=== PATIENT | female | born 1970 | race Hispanic/Latino ===

== ENCOUNTER 2017-11-07 12:57 | Emergency (ER) | payer BC ==
[~2017-11-07 12:57] MED LIST: AMOX-427 PO; DULO30CA51 PO; LEVO1CAP3 PO; LORA1TAB3 PO; OXYC30TA89 PO; TRAZ150T79 PO; hydromorphone
[2017-11-07] MEDS ORDERED: ONDANSETRON HCL 4 MG/2 ML VIAL ONE (13:25)
[2017-11-07 14:05] LABS: HEMATOCRIT 42.5 % (36-48); LYMPHOCYTES % (AUTO) 6.9 % (21.0-51.0); MEAN CORPUSCULAR HEMOGLOBIN 28.5 pg (27.0-33.0); MEAN CORPUSCULAR HGB CONC 33.4 g/dL (32.0-36.0); MEAN CORPUSCULAR VOLUME 85.3 fL (79-99); MONOCYTES % (AUTO) 6.5 % (3.0-13.0); NEUTROPHILS % (AUTO) 86.6 % (40.0-77.0); PLATELET COUNT (AUTO) 219 K/uL (130-400); RED BLOOD CELL COUNT(AUTO) 4.98 MIL/uL (4.00-5.50); RED CELL DISTRIBUTION WIDTH 16.1 % (11.0-15.5); WHITE BLOOD COUNT (AUTO) 7.6 K/uL (4.8-10.8)
[2017-11-07 14:16] LABS: CREATININE 0.7 mg/dL (0.5-1.5); POTASSIUM 3.9 mmol/L (3.5-5.1)
[2017-11-07] MEDS ORDERED: HYDROMORPHONE 1 MG/1 ML AMP ONE (14:21)
[2017-11-07 14:22] LABS: ALBUMIN 3.6 g/dL (3.5-5.0); BILIRUBIN,TOTAL 0.5 mg/dL (0.2-1.0); TOTAL PROTEIN, SERUM 6.9 g/dL (6.0-8.3)
== END 2017-11-07 15:50 | disposition home or self-care (01) ==
LOC: EDH 12:57
DX: R11.2 Nausea with vomiting, unspecified (principal); R10.13 Epigastric pain; Z88.6 Allergy status to analgesic agent; Z85.038 Personal history of other malignant neoplasm of large intestine; Z85.820 Personal history of malignant melanoma of skin; Z85.43 Personal history of malignant neoplasm of ovary; Z90.710 Acquired absence of both cervix and uterus
CPT/HCPCS: 36415; 80053; 83690; 85025; 96374; 96375; 99284; J1170; J2405

== ENCOUNTER 2018-01-29 22:34 | Emergency (ER) | payer BC, MEDICARE ==
[2018-01-29 23:24] LABS: BASOPHILS % (AUTO) 0.4 % (0.0-5.0); EOSINOPHILS % (AUTO) 0.1 % (0.0-8.0); LYMPHOCYTES % (AUTO) 20.9 % (21.0-51.0); MEAN CORPUSCULAR HEMOGLOBIN 29.2 pg (27.0-33.0); MEAN CORPUSCULAR HGB CONC 34.2 g/dL (32.0-36.0); MEAN CORPUSCULAR VOLUME 85.4 fL (79-99); MONOCYTES % (AUTO) 0.8 % (3.0-13.0); NEUTROPHILS % (AUTO) 77.8 % (40.0-77.0); NUCLEATED RED BLOOD CELLS 0.1 % (0.0-0.19); PLATELET COUNT (AUTO) 258 K/uL (130-400); RED BLOOD CELL COUNT(AUTO) 4.57 MIL/uL (4.00-5.50); RED CELL DISTRIBUTION WIDTH 15.5 % (11.0-15.5)
[2018-01-29 23:38] LABS: CARBON DIOXIDE 29 mmol/L (21-32); CHLORIDE 105 mmol/L (101-111); GLOMERULAR FILTR. RATE CALC 63 mL/min (>60); GLUCOSE,RANDOM 181 mg/dL (70-105); POTASSIUM 4.6 mmol/L (3.5-5.1); SODIUM SERUM 140 mmol/L (136-145); UREA NITROGEN, BLOOD 14 mg/dL (7-18)
[2018-01-29 23:39] LABS: INR 0.91 (0.85-1.15); PARTIAL THROMBOPLASTIN TIME 23.3 SEC (26.3-35.5); PROTHROMBIN TIME 9.6 SEC (9.6-11.6)
[2018-01-29 23:52] LABS: ALANINE AMINOTRANSFERASE 20 U/L (12-78); ALBUMIN 3.5 g/dL (3.5-5.0); ASPARTATE AMINOTRANSFERASE 19 U/L (10-37); BILIRUBIN,TOTAL 0.5 mg/dL (0.2-1.0); CREATINE KINASE MB 0.9 ng/mL (0.5-3.6); CREATINE KINASE, TOTAL 61 U/L (21-232); MYOGLOBIN 15 ng/mL (10-92); TOTAL PROTEIN, SERUM 7.2 g/dL (6.0-8.3); TROPONIN I < 0.04 ng/mL (0.00-0.06)
[2018-01-30 00:12] LABS: BAND NEUTROPHILS % (MANUAL) 11 % (0-2); LYMPHOCYTES % (MANUAL) 23 % (22-44); MAN.DIFF COMMENT-IMPRESSION MANUAL DIFFERENTIAL; REACTIVE LYMPHOCYTES 4 % (0-0); SEGMENTED NEUTROPHILS % 62 % (40-70)
[2018-01-30] MEDS ORDERED: HYDROMORPHONE 1 MG/1 ML AMP ONE ×2 (00:20→02:27)
[2018-01-30] MEDS ORDERED: ONDANSETRON HCL MDV 20ML 2 MG/ML VIAL ONE (00:27)
[2018-01-30] MEDS ORDERED: SODIUM CHLORIDE 0.9% 1000ML 1,000 ML IV ONE (01:06)
[2018-01-30 02:13] LABS: APPEARANCE,URINE Clear (CLEAR); BILIRUBIN,URINE Negative (NEGATIVE); COLOR,URINE Yellow (YELLOW); GLUCOSE, URINE (UA) 250 mg/dL (NEGATIVE); KETONES,URINE Negative (NEGATIVE); LEUKOCYTE ESTERASE ,URINE Negative (NEGATIVE); NITRATE,URINE Negative (NEGATIVE); OCCULT BLOOD,URINE Negative (NEGATIVE); PROTEIN,URINE Negative (NEGATIVE); UROBILINOGEN,URINE 0.2 mg/dL (0.2-1.0)
[2018-01-30 02:31] LABS: BACTERIA,URINE None Seen /HPF (None Seen); RBC,URINE 0-1 /HPF (0-1); WBC,URINE 0-1 /HPF (0-1); YEAST,URINE BUDDING None Seen /HPF (None Seen)
[2018-01-30 02:32] LABS: SQUAMOUS EPITHELIAL CELL,UR Rare /HPF (0-2)
== END 2018-01-30 03:06 | disposition home or self-care (01) ==
LOC: EDH 22:34
DX: D01.0 Carcinoma in situ of colon (principal); G89.3 Neoplasm related pain (acute) (chronic); R53.1 Weakness; R11.0 Nausea; R79.1 Abnormal coagulation profile; Z88.6 Allergy status to analgesic agent; Z90.710 Acquired absence of both cervix and uterus; Z85.048 Personal history of other malignant neoplasm of rectum, rectosigmoid junction, and anus; Z85.43 Personal history of malignant neoplasm of ovary
CPT/HCPCS: 36415 ×2; 71045; 80053; 81001; 82550; 82553; 83605 ×2; 83874; 84484; 85007; 85025; 85610; 85730; 87040 ×2; 87088; 93005; 96361; 96374; 96375; 96376; 99285; J1170 ×2; J7030

== ENCOUNTER 2018-02-16 05:38 | Emergency (ER) | payer BC, MEDICARE ==
[2018-02-16] MEDS ORDERED: HYDROMORPHONE 1 MG/1 ML AMP ONE (05:55)
[2018-02-16 06:32] LABS: APPEARANCE,URINE CLEAR (CLEAR); BILIRUBIN,URINE NEGATIVE (NEGATIVE); COLOR,URINE YELLOW (YELLOW); GLUCOSE, URINE (UA) NEGATIVE (NEGATIVE); KETONES,URINE NEGATIVE (NEGATIVE); LEUKOCYTE ESTERASE ,URINE TRACE (NEGATIVE); NITRATE,URINE NEGATIVE (NEGATIVE); OCCULT BLOOD,URINE NEGATIVE (NEGATIVE); PROTEIN,URINE NEGATIVE (NEGATIVE); UROBILINOGEN,URINE 0.2 mg/dL (0.2-1.0)
[2018-02-16 06:33] LABS: BASOPHILS % (AUTO) 0.7 % (0.0-5.0); EOSINOPHILS % (AUTO) 4.9 % (0.0-8.0); HEMATOCRIT 41.5 % (36-48); MEAN CORPUSCULAR HEMOGLOBIN 29.3 pg (27.0-33.0); MEAN CORPUSCULAR HGB CONC 34.4 g/dL (32.0-36.0); MEAN CORPUSCULAR VOLUME 85.1 fL (79-99); MONOCYTES % (AUTO) 19.1 % (3.0-13.0); NEUTROPHILS % (AUTO) 28.3 % (40.0-77.0); PLATELET COUNT (AUTO) 252 K/uL (130-400); RED BLOOD CELL COUNT(AUTO) 4.88 MIL/uL (4.00-5.50); RED CELL DISTRIBUTION WIDTH 15.8 % (11.0-15.5); WHITE BLOOD COUNT (AUTO) 2.2 K/uL (4.8-10.8)
[2018-02-16 06:41] LABS: CREATININE 0.8 mg/dL (0.5-1.5); POTASSIUM 3.6 mmol/L (3.5-5.1)
[2018-02-16 06:47] LABS: ALBUMIN 3.7 g/dL (3.5-5.0); BILIRUBIN,TOTAL 0.3 mg/dL (0.2-1.0); TOTAL PROTEIN, SERUM 7.1 g/dL (6.0-8.3)
[2018-02-16 07:20] LABS: BACTERIA,URINE Rare /HPF (None Seen); RBC,URINE None Seen /HPF (0-1); SQUAMOUS EPITHELIAL CELL,UR Rare /HPF (0-2); WBC,URINE 0-1 /HPF (0-1)
[2018-02-16 07:30] LABS: BAND NEUTROPHILS % (MANUAL) 2 % (0-2); EOSINOPHILS % (MANUAL) 5 % (1-6); LYMPHOCYTES % (MANUAL) 45 % (22-44); MAN.DIFF COMMENT-IMPRESSION MANUAL DIFFERENTIAL; METAMYELOCYTES % 1 % (0-0); MONOCYTES % (MANUAL) 10 % (2-9); MYELOCYTES % 1 % (0-0); PLATELET MORPHOLOGY COMMENT ADEQUATE; PROMYELOCYTES % 1 (0-0); SEGMENTED NEUTROPHILS % 35 % (40-70)
== END 2018-02-16 08:43 | disposition home or self-care (01) ==
LOC: EDH 05:38
DX: C53.9 Malignant neoplasm of cervix uteri, unspecified (principal); D70.1 Agranulocytosis secondary to cancer chemotherapy; G89.29 Other chronic pain; R10.31 Right lower quadrant pain; F41.9 Anxiety disorder, unspecified; Z85.038 Personal history of other malignant neoplasm of large intestine; Z85.43 Personal history of malignant neoplasm of ovary; Z88.5 Allergy status to narcotic agent
CPT/HCPCS: 36415; 80053; 81001; 85007; 85025; 87088; 96374; 99284; J1170

== ENCOUNTER 2018-02-26 19:24 | Emergency (ER) | payer BC, MEDICARE ==
[2018-02-26] MEDS ORDERED: ONDANSETRON HCL MDV 20ML 2 MG/ML VIAL ONE (19:56)
[2018-02-26] MEDS ORDERED: HYDROMORPHONE 1 MG/1 ML AMP ONE (19:57)
[2018-02-26 20:00] LABS: APPEARANCE,URINE Clear (CLEAR); BILIRUBIN,URINE Negative (NEGATIVE); COLOR,URINE Yellow (YELLOW); GLUCOSE, URINE (UA) 250 mg/dL (NEGATIVE); KETONES,URINE Negative (NEGATIVE); LEUKOCYTE ESTERASE ,URINE Moderate (NEGATIVE); NITRATE,URINE Negative (NEGATIVE); OCCULT BLOOD,URINE Negative (NEGATIVE); PH,URINE 8.5 (5.0-8.0); PROTEIN,URINE Negative (NEGATIVE); UROBILINOGEN,URINE 0.2 mg/dL (0.2-1.0)
[2018-02-26 20:05] LABS: RBC,URINE 0-1 /HPF (0-1)
[2018-02-26 20:06] LABS: BACTERIA,URINE Few /HPF (None Seen); SQUAMOUS EPITHELIAL CELL,UR Rare /HPF (0-2)
[2018-02-26 20:17] LABS: BASOPHILS % (AUTO) 0.2 % (0.0-5.0); HEMATOCRIT 39.8 % (36-48); LYMPHOCYTES % (AUTO) 16.9 % (21.0-51.0); MEAN CORPUSCULAR HEMOGLOBIN 28.7 pg (27.0-33.0); MEAN CORPUSCULAR HGB CONC 33.4 g/dL (32.0-36.0); MEAN CORPUSCULAR VOLUME 85.9 fL (79-99); MONOCYTES % (AUTO) 0.9 % (3.0-13.0); PLATELET COUNT (AUTO) 192 K/uL (130-400); RED BLOOD CELL COUNT(AUTO) 4.64 MIL/uL (4.00-5.50); RED CELL DISTRIBUTION WIDTH 15.9 % (11.0-15.5); WHITE BLOOD COUNT (AUTO) 3.5 K/uL (4.8-10.8)
[2018-02-26 20:34] LABS: POTASSIUM 4.7 mmol/L (3.5-5.1)
[2018-02-26 20:39] LABS: ALBUMIN 3.5 g/dL (3.5-5.0); BILIRUBIN,TOTAL 0.4 mg/dL (0.2-1.0); TOTAL PROTEIN, SERUM 7.2 g/dL (6.0-8.3)
== END 2018-02-26 22:09 | disposition home or self-care (01) ==
LOC: EDH 19:24
DX: N30.00 Acute cystitis without hematuria (principal); G89.29 Other chronic pain; R10.84 Generalized abdominal pain; Z85.038 Personal history of other malignant neoplasm of large intestine; Z85.43 Personal history of malignant neoplasm of ovary; Z88.5 Allergy status to narcotic agent
CPT/HCPCS: 36415; 80053; 81001; 83690; 85025; 87088; 96374; 96375; 99284; J1170

== ENCOUNTER 2018-03-12 06:15 | Emergency (ER) | payer BC, MEDICARE ==
[2018-03-12 07:13] LABS: APPEARANCE,URINE CLEAR (CLEAR); BILIRUBIN,URINE NEGATIVE (NEGATIVE); COLOR,URINE YELLOW (YELLOW); GLUCOSE, URINE (UA) NEGATIVE (NEGATIVE); KETONES,URINE NEGATIVE (NEGATIVE); LEUKOCYTE ESTERASE ,URINE LARGE (NEGATIVE); NITRATE,URINE NEGATIVE (NEGATIVE); OCCULT BLOOD,URINE SMALL (NEGATIVE); PH,URINE 6.5 (5.0-8.0); PROTEIN,URINE NEGATIVE (NEGATIVE); UROBILINOGEN,URINE 0.2 mg/dL (0.2-1.0)
[2018-03-12] MEDS ORDERED: ONDANSETRON HCL MDV 20ML 2 MG/ML VIAL ONE (07:16)
[2018-03-12] MEDS ORDERED: HYDROMORPHONE 1 MG/1 ML AMP ONE ×2 (07:17→08:23)
[2018-03-12 07:44] LABS: BACTERIA,URINE Rare /HPF (None Seen); RBC,URINE 0-1 /HPF (0-1); SQUAMOUS EPITHELIAL CELL,UR Rare /HPF (0-2)
[2018-03-12] MEDS ORDERED: HYDROMORPHONE HCL 0.5 MG/0.5 ML ML ONE ×2 (08:58→09:58)
[2018-03-12] MEDS ORDERED: HEPARIN SODIUM 5000UNIT/ML 1ML VIAL ONE (09:48)
[2018-03-12] MEDS ORDERED: POTASSIUM BICARB/CIT AC 25 MEQ TABLET.EFF ONE (13:53)
== END 2018-03-12 10:15 | disposition home or self-care (01) ==
LOC: EDH 06:15
DX: G89.3 Neoplasm related pain (acute) (chronic) (principal); C18.9 Malignant neoplasm of colon, unspecified; C56.9 Malignant neoplasm of unspecified ovary; R10.9 Unspecified abdominal pain; Z85.048 Personal history of other malignant neoplasm of rectum, rectosigmoid junction, and anus; Z85.44 Personal history of malignant neoplasm of other female genital organs; Z88.5 Allergy status to narcotic agent; Z90.710 Acquired absence of both cervix and uterus; Z90.49 Acquired absence of other specified parts of digestive tract; Z98.890 Other specified postprocedural states; Z93.3 Colostomy status
CPT/HCPCS: 81001; 87088; 96374; 96375; 96376; 99284; J1170 ×4; J1644

== ENCOUNTER 2018-04-07 01:29 | Emergency (ER) | payer BC, MEDICARE ==
[2018-04-07] MEDS ORDERED: ACETAMINOPHEN-CODEINE ELIXIR 5 ML UDCUP ONE (02:36)
[2018-04-07] MEDS ORDERED: ACETAMINOPHEN 325 MG TAB ONE (03:37)
== END 2018-04-07 04:33 | disposition home or self-care (01) ==
LOC: EDH 01:29
DX: S90.32XA Contusion of left foot, initial encounter (principal); S30.0XXA Contusion of lower back and pelvis, initial encounter; S20.211A Contusion of right front wall of thorax, initial encounter; S09.8XXA Other specified injuries of head, initial encounter; F32.9 Major depressive disorder, single episode, unspecified; Z85.038 Personal history of other malignant neoplasm of large intestine; Z85.44 Personal history of malignant neoplasm of other female genital organs; Z85.43 Personal history of malignant neoplasm of ovary; Z88.6 Allergy status to analgesic agent; W11.XXXA Fall on and from ladder, initial encounter; Y93.89 Activity, other specified; Y92.89 Other specified places as the place of occurrence of the external cause; Y99.8 Other external cause status
CPT/HCPCS: 70450; 71111; 72170; 73630

== ENCOUNTER 2018-04-28 23:19 | Emergency (ER) | payer BC, MEDICARE ==
[2018-04-28 23:52] LABS: APPEARANCE,URINE Clear (CLEAR); BILIRUBIN,URINE Negative (NEGATIVE); COLOR,URINE Yellow (YELLOW); GLUCOSE, URINE (UA) Negative (NEGATIVE); KETONES,URINE Negative (NEGATIVE); LEUKOCYTE ESTERASE ,URINE Large (NEGATIVE); NITRATE,URINE Negative (NEGATIVE); OCCULT BLOOD,URINE Trace (NEGATIVE); PH,URINE 6.5 (5.0-8.0); PROTEIN,URINE Trace (NEGATIVE); UROBILINOGEN,URINE 0.2 mg/dL (0.2-1.0)
[2018-04-29 00:05] LABS: BASOPHILS % (AUTO) 1.5 % (0.0-5.0); EOSINOPHILS % (AUTO) 1.6 % (0.0-8.0); HEMATOCRIT 40.4 % (36-48); LYMPHOCYTES % (AUTO) 11.7 % (21.0-51.0); MEAN CORPUSCULAR HEMOGLOBIN 28.8 pg (27.0-33.0); MEAN CORPUSCULAR HGB CONC 33.8 g/dL (32.0-36.0); MEAN CORPUSCULAR VOLUME 85.2 fL (79-99); MONOCYTES % (AUTO) 4.7 % (3.0-13.0); NEUTROPHILS % (AUTO) 80.5 % (40.0-77.0); PLATELET COUNT (AUTO) 365 K/uL (130-400); RED BLOOD CELL COUNT(AUTO) 4.74 MIL/uL (4.00-5.50); RED CELL DISTRIBUTION WIDTH 15.1 % (11.0-15.5); WHITE BLOOD COUNT (AUTO) 7.7 K/uL (4.8-10.8)
[2018-04-29 00:06] LABS: BACTERIA,URINE Few /HPF (None Seen)
[2018-04-29 00:12] LABS: CREATININE 0.8 mg/dL (0.5-1.5); POTASSIUM 3.8 mmol/L (3.5-5.1)
[2018-04-29 00:17] LABS: ALBUMIN 3.3 g/dL (3.5-5.0); BILIRUBIN,TOTAL 0.2 mg/dL (0.2-1.0)
[2018-04-29] MEDS ORDERED: HALOPERIDOL LACTATE 5 MG/ML VIAL ONE (00:20)
[2018-04-29] MEDS ORDERED: HYDROMORPHONE HCL 0.5 MG/0.5 ML ML ONE (00:21)
[2018-04-29] MEDS ORDERED: PROMETHAZINE HCL 25 MG/ML 1ML AMPULE IM ONE (00:21)
[2018-04-29] MEDS ORDERED: SODIUM CHLORIDE 0.9% 500ML 500 ML IV ONE (00:22)
[2018-04-29] MEDS ORDERED: IOHEXOL-350 75 ML VIAL IV ONE (00:26)
[2018-05-17] MEDS ORDERED: HYDR2VIA PO (18:31)
== END 2018-04-29 02:31 | disposition home or self-care (01) ==
LOC: EDH 23:19
DX: R10.13 Epigastric pain (principal); R11.2 Nausea with vomiting, unspecified; R63.0 Anorexia; Z90.710 Acquired absence of both cervix and uterus; Z88.6 Allergy status to analgesic agent
CPT/HCPCS: 36415; 80053; 81001; 83690; 85025; 93005; 96361; 96374; 96375; 99285; J1170; J1630; J2550; J7040; Q9967

== ENCOUNTER 2018-05-06 09:40 | Inpatient (IN) | payer BC, MEDICARE ==
[~2018-05-06] VITALS: Ht 162.6 cm; Wt 67.2 kg
[2018-05-06] MEDS ORDERED: HYDROMORPHONE 1 MG/1 ML AMP ONE ×4 (10:17→21:39)
[2018-05-06 10:33] LABS: BASOPHILS % (AUTO) 0.8 % (0.0-5.0); EOSINOPHILS % (AUTO) 2.5 % (0.0-8.0); HEMATOCRIT 38.8 % (36-48); LYMPHOCYTES % (AUTO) 16.3 % (21.0-51.0); MEAN CORPUSCULAR HEMOGLOBIN 28.3 pg (27.0-33.0); MEAN CORPUSCULAR HGB CONC 33.6 g/dL (32.0-36.0); MEAN CORPUSCULAR VOLUME 84.1 fL (79-99); MONOCYTES % (AUTO) 7.5 % (3.0-13.0); NEUTROPHILS % (AUTO) 72.9 % (40.0-77.0); PLATELET COUNT (AUTO) 264 K/uL (130-400); RED BLOOD CELL COUNT(AUTO) 4.61 MIL/uL (4.00-5.50); WHITE BLOOD COUNT (AUTO) 6.7 K/uL (4.8-10.8)
[2018-05-06 10:42] LABS: CREATININE 0.7 mg/dL (0.5-1.5); POTASSIUM 3.9 mmol/L (3.5-5.1)
[2018-05-06 10:47] LABS: ALBUMIN 3.3 g/dL (3.5-5.0); BILIRUBIN,TOTAL 0.2 mg/dL (0.2-1.0); TOTAL PROTEIN, SERUM 6.7 g/dL (6.0-8.3)
[2018-05-06] MEDS ORDERED: ONDANSETRON HCL 4 MG/2 ML VIAL ONE (10:47)
[2018-05-06] MEDS ORDERED: FENTANYL CITRATE PF 50 MCG/1 ML 2ML VIAL ONE ×2 (11:20→13:16)
[2018-05-06] MEDS ORDERED: ONDA8TAB12 PO (15:04)
[2018-05-06] MEDS ORDERED: LISI10TA7 PO (15:04)
[2018-05-06] MEDS ORDERED: IBUP-2077 PO (15:04)
[2018-05-06] MEDS ORDERED: CLONIDINE HCL 0.1 MG TABLET PO PRN (15:15)
[2018-05-06 16:00] VITALS: BP 160/105
[2018-05-06] MEDS ORDERED: ONDANSETRON HCL 4 MG/2 ML VIAL IVP PRN (16:00)
[2018-05-06] MEDS ORDERED: HYDROMORPHONE 4MG/ML 1ML VIAL IV PRN (16:00)
[2018-05-06] MEDS: SODIUM CHLORIDE 0.9% 1000ML 1,000 ML IV SCH (16:55)
[2018-05-06 20:05] VITALS: BP 120/78
[2018-05-06] MEDS: LISINOPRIL 10 MG TABLET PO SCH (21:00)
[2018-05-06 22:06] LABS: APPEARANCE,URINE Cloudy (CLEAR); BILIRUBIN,URINE Negative (NEGATIVE); COLOR,URINE Yellow (YELLOW); GLUCOSE, URINE (UA) Negative (NEGATIVE); KETONES,URINE Negative (NEGATIVE); LEUKOCYTE ESTERASE ,URINE Large (NEGATIVE); NITRATE,URINE Negative (NEGATIVE); OCCULT BLOOD,URINE Small (NEGATIVE); PROTEIN,URINE Trace (NEGATIVE); UROBILINOGEN,URINE 0.2 mg/dL (0.2-1.0)
[2018-05-06 22:15] LABS: BACTERIA,URINE Rare /HPF (None Seen); MUCUS,URINE Few LPF (None Seen); RBC,URINE None Seen /HPF (0-1); SQUAMOUS EPITHELIAL CELL,UR None Seen /HPF (0-2); WBC,URINE >100 /HPF (0-1)
[2018-05-07] VITALS: BP 113/74
[2018-05-07] MEDS ORDERED: HYDROMORPHONE 1 MG/1 ML AMP ONE ×5 (02:56→21:06)
[2018-05-07 04:18] VITALS: BP 142/82
[2018-05-07 08:00] VITALS: BP 151/83
[2018-05-07 11:00] VITALS: BP 155/91
[2018-05-07] MEDS ORDERED: OXYCODONE HCL 30 MG TABLET PO PRN (12:00)
[2018-05-07] MEDS ORDERED: HYDROMORPHONE 4MG/ML 1ML VIAL IVP PRN (12:00)
[2018-05-07] MEDS ORDERED: IBUPROFEN 800 MG TAB PO PRN (12:00)
[2018-05-07] MEDS ORDERED: ONDANSETRON ODT 4 MG TAB PO PRN (12:15)
[2018-05-07] MEDS: HYDROMORPHONE 4MG/ML 1ML VIAL IVP SCH ×3 (12:45→20:45)
[2018-05-07] MEDS: LEVOFLOXACIN 500 MG/D5W 100 ML 100 ML IV SCH (13:04)
[2018-05-07 16:00] VITALS: BP 154/84
[2018-05-07] MEDS: LORAZEPAM 1 MG TABLET PO PRN (18:31)
[2018-05-07] MEDS: SODIUM CHLORIDE 0.9% 1000ML 1,000 ML IV SCH (18:35)
[2018-05-07 19:00] VITALS: BP 141/79
[2018-05-07] MEDS: DULOXETINE HCL 30 MG CAP PO SCH (21:00)
[2018-05-07] MEDS: TRAZODONE HCL 100 MG TABLET PO SCH (21:00)
[2018-05-07] MEDS: LISINOPRIL 10 MG TABLET PO SCH (21:12)
[2018-05-08] VITALS (7 sets, daily range): BP systolic 143–172; BP diastolic 80–96
[2018-05-08] MEDS ORDERED: HYDROMORPHONE 1 MG/1 ML AMP ONE ×6 (00:45→21:21)
[2018-05-08] MEDS: HYDROMORPHONE 4MG/ML 1ML VIAL IVP SCH ×6 (00:45→20:45)
[2018-05-08] MEDS: SODIUM CHLORIDE 0.9% 1000ML 1,000 ML IV SCH (08:00)
[2018-05-08] MEDS: DULOXETINE HCL 30 MG CAP PO SCH ×2 (08:47→21:00)
[2018-05-08] MEDS: LEVOFLOXACIN 500 MG/D5W 100 ML 100 ML IV SCH (13:03)
[2018-05-08] MEDS: LORAZEPAM 1 MG TABLET PO PRN (16:13)
[2018-05-08] MEDS: TRAZODONE HCL 100 MG TABLET PO SCH (21:00)
[2018-05-08] MEDS: LISINOPRIL 10 MG TABLET PO SCH (21:26)
[2018-05-09] MEDS: HYDROMORPHONE 4MG/ML 1ML VIAL IVP SCH ×5 (00:45→17:26)
[2018-05-09] MEDS ORDERED: HYDROMORPHONE 1 MG/1 ML AMP ONE ×5 (01:01→17:21)
[2018-05-09 04:00] VITALS: BP 147/92
[2018-05-09 07:00] VITALS: BP 151/85
[2018-05-09] MEDS: DULOXETINE HCL 30 MG CAP PO SCH (09:00)
[2018-05-09] MEDS: SODIUM CHLORIDE 0.9% 1000ML 1,000 ML IV SCH (09:06)
[2018-05-09 11:00] VITALS: BP 148/89
[2018-05-09] MEDS: LEVOFLOXACIN 500 MG/D5W 100 ML 100 ML IV SCH (12:57)
[2018-05-09] MEDS: LORAZEPAM 1 MG TABLET PO PRN (12:57)
[2018-05-09 16:00] VITALS: BP 172/97
[2018-05-09] MEDS ORDERED: HEPARIN SODIUM/PF 100UNIT/ML 5ML SYRINGE IV SCH (17:45)
[2018-05-17] MEDS ORDERED: HYDR2VIA PO (18:31)
== END 2018-05-09 18:30 | disposition home or self-care (01) | DRG 948 ==
LOC: EDH 09:40 → EDHIP 13:33 → OBSVTOIN 13:33 → 3AH 14:16
PROVIDERS: ADMIT Internal Medicine Hematology & Oncology; ATTEND Internal Medicine Hematology & Oncology
DX: G89.3 Neoplasm related pain (acute) (chronic) (principal); C20 Malignant neoplasm of rectum; N39.0 Urinary tract infection, site not specified; C56.9 Malignant neoplasm of unspecified ovary; F32.9 Major depressive disorder, single episode, unspecified; E04.1 Nontoxic single thyroid nodule; Z85.048 Personal history of other malignant neoplasm of rectum, rectosigmoid junction, and anus; Z90.710 Acquired absence of both cervix and uterus; Z90.722 Acquired absence of ovaries, bilateral
CPT/HCPCS: 36415; 74176; 80053; 81001; 85025; J1170; J1642; J1956; J2405; J3010; J7030

== ENCOUNTER 2018-07-31 03:05 | Inpatient (IN) | payer BC, MEDICARE ==
[~2018-07-31] VITALS: Ht 162.6 cm; Wt 61.7 kg
[~2018-07-31 03:05] MED LIST changes: -AMOX-427 PO; -DULO30CA51 PO; +FENT100PAT TD; +FENT25PAT TD; -LEVO1CAP3 PO; +LISI10TA7 PO; +MAGIC240 MM; +ONDA8TAB12 PO; +REGO40TA PO; -TRAZ150T79 PO; -hydromorphone
[2018-07-31] MEDS ORDERED: ONDANSETRON HCL 4 MG/2 ML VIAL ONE ×2 (03:23→07:20)
[2018-07-31] MEDS ORDERED: HYDROMORPHONE HCL 0.5 MG/0.5 ML ML ONE (03:23)
[2018-07-31] MEDS ORDERED: SODIUM CHLORIDE 0.9% 500ML 1,000 ML IV ONE (03:34)
[2018-07-31] MEDS ORDERED: HALOPERIDOL LACTATE 5 MG/ML VIAL ONE (04:05)
[2018-07-31 04:07] LABS: BASOPHILS % (AUTO) 0.7 % (0.0-5.0); EOSINOPHILS % (AUTO) 2.8 % (0.0-8.0); HEMATOCRIT 44.9 % (36-48); LYMPHOCYTES % (AUTO) 13.6 % (21.0-51.0); MEAN CORPUSCULAR HEMOGLOBIN 28.2 pg (27.0-33.0); MEAN CORPUSCULAR HGB CONC 34.1 g/dL (32.0-36.0); MEAN CORPUSCULAR VOLUME 82.8 fL (79-99); MONOCYTES % (AUTO) 5.7 % (3.0-13.0); NEUTROPHILS % (AUTO) 77.2 % (40.0-77.0); PLATELET COUNT (AUTO) 220 K/uL (130-400); RED BLOOD CELL COUNT(AUTO) 5.42 MIL/uL (4.00-5.50); RED CELL DISTRIBUTION WIDTH 17.6 % (11.0-15.5); WHITE BLOOD COUNT (AUTO) 6.8 K/uL (4.8-10.8)
[2018-07-31 04:14] LABS: CREATININE 0.7 mg/dL (0.5-1.5); INR 0.96 (0.85-1.15); PARTIAL THROMBOPLASTIN TIME 29.2 SEC (26.3-35.5); POTASSIUM 3.3 mmol/L (3.5-5.1); PROTHROMBIN TIME 10.1 SEC (9.6-11.6)
[2018-07-31 04:19] LABS: ALBUMIN 3.2 g/dL (3.5-5.0); BILIRUBIN,DIRECT 0.1 mg/dL (0.0-0.3); BILIRUBIN,TOTAL 0.7 mg/dL (0.2-1.0); TOTAL PROTEIN, SERUM 7.1 g/dL (6.0-8.3)
[2018-07-31] MEDS ORDERED: HYDROMORPHONE 1 MG/1 ML AMP ONE ×4 (04:26→11:37)
[2018-07-31] MEDS ORDERED: SODIUM CHLORIDE 0.9% 0 ML IV ONE (04:55)
[2018-07-31] MEDS ORDERED: PROMETHAZINE HCL 25 MG/ML 1ML AMPULE IM ONE (04:55)
[2018-07-31] MEDS ORDERED: SODIUM CHLORIDE 0.9% 50 ML IV ONE (04:57)
[2018-07-31] MEDS ORDERED: PHARMACY COMMUNICATION MISC SCH (05:45)
[2018-07-31] MEDS ORDERED: ONDANSETRON HCL MDV 20ML 2 MG/ML VIAL IVP PRN (05:45)
[2018-07-31] MEDS ORDERED: LORAZEPAM 1 MG TABLET ONE (07:25)
[2018-07-31] MEDS ORDERED: SODIUM CHLORIDE 0.9% 1000ML 1,000 ML IV ONE (07:30)
[2018-07-31 14:30] VITALS: BP 137/71
[2018-07-31] MEDS ORDERED: HYDROMORPHONE 1 MG/1 ML AMP IVP SCH (15:30)
[2018-07-31] MEDS: HYDROMORPHONE 1 MG/1 ML AMP IVP PRN (15:34)
[2018-07-31 20:00] VITALS: BP 128/84
[2018-07-31] MEDS ORDERED: POTASSIUM CHLORIDE 10% ELIXIR 20 MEQ/15 ML UDCUP PO PRN (20:00)
[2018-07-31] MEDS ORDERED: POTASSIUM CHLORIDE 20MEQ/100ML 100 ML IV PRN (20:00)
[2018-07-31] MEDS ORDERED: LIDOCAINE HCL-MPF 1% 2ML VIAL IVP PRN (20:00)
[2018-07-31] MEDS: POTASSIUM CHLORIDE 20 MEQ ERTAB PO PRN (20:37)
[2018-07-31] MEDS: SODIUM CHLORIDE 0.9% 1000ML 1,000 ML IV SCH (20:42)
[2018-08-01] VITALS (7 sets, daily range): BP systolic 120–165; BP diastolic 61–95
[2018-08-01] MEDS: HYDROMORPHONE 1 MG/1 ML AMP IVP PRN ×6 (00:26→20:34)
[2018-08-01] MEDS: POTASSIUM CHLORIDE 20 MEQ ERTAB PO PRN ×2 (00:29→04:37)
[2018-08-01] MEDS: SODIUM CHLORIDE 0.9% 1000ML 1,000 ML IV SCH ×3 (01:45→16:25)
[2018-08-01] MEDS: LORAZEPAM 1 MG TABLET PO PRN (09:15)
[2018-08-02] MEDS: HYDROMORPHONE 1 MG/1 ML AMP IVP PRN ×5 (00:26→17:54)
[2018-08-02 03:13] VITALS: BP 144/92
[2018-08-02] MEDS: SODIUM CHLORIDE 0.9% 1000ML 1,000 ML IV SCH (06:24)
[2018-08-02 08:00] VITALS: BP 156/91
[2018-08-02] MEDS ORDERED: DEXAMETHASONE 10MG/ML 1ML VIAL 0 MG in SODIUM CHLORIDE 0.9% 50 ML IV SCH ×2 (08:30→09:00)
[2018-08-02] MEDS ORDERED: ONDANSETRON ODT 4 MG TAB PO PRN (09:00)
[2018-08-02] MEDS: STIVARGA 40 MG PO SCH ×2 (09:00→21:00)
[2018-08-02] MEDS ORDERED: DEXAMETHASONE SOD PHOSPHATE 10MG/ML 1ML VIAL IVP SCH (09:00)
[2018-08-02] MEDS: ZOSYN 3.375GM+NS 50ML 50 ML IV SCH ×2 (09:29→17:47)
[2018-08-02] MEDS: LORAZEPAM 1 MG TABLET PO PRN (09:30)
[2018-08-02] MEDS: FENTANYL 25 MCG/HR PATCH TD SCH (09:38)
[2018-08-02] MEDS: FENTANYL 100 MCG/HR PATCH TD SCH (09:39)
[2018-08-02] MEDS ORDERED: OXYCODONE HCL 30 MG TABLET PO PRN (09:45)
[2018-08-02 12:00] VITALS: BP 158/94
[2018-08-02] MEDS: KETOROLAC TROMETHAMINE 30MG/ML IV PRN ×2 (15:30→21:50)
[2018-08-02] MEDS: OXYCODONE HCL 30 MG TABLET PO PRN ×2 (15:30→21:54)
[2018-08-02 16:00] VITALS: BP 134/87
[2018-08-02 20:38] VITALS: BP 158/89
[2018-08-02] MEDS: LISINOPRIL 10 MG TABLET PO SCH (21:43)
[2018-08-03 00:04] VITALS: BP 153/113
[2018-08-03] MEDS: HYDROMORPHONE 1 MG/1 ML AMP IVP PRN ×3 (00:14→16:27)
[2018-08-03] MEDS: ZOSYN 3.375GM+NS 50ML 50 ML IV SCH ×3 (00:14→16:29)
[2018-08-03 03:44] VITALS: BP 150/80
[2018-08-03] MEDS: KETOROLAC TROMETHAMINE 30MG/ML IV PRN ×3 (04:17→20:27)
[2018-08-03] MEDS: OXYCODONE HCL 30 MG TABLET PO PRN ×3 (04:17→20:27)
[2018-08-03 08:00] VITALS: BP 144/75
[2018-08-03] MEDS: SODIUM CHLORIDE 0.9% 1000ML 1,000 ML IV SCH ×3 (08:32→23:45)
[2018-08-03] MEDS: STIVARGA 40 MG PO SCH ×2 (08:32→21:00)
[2018-08-03 12:00] VITALS: BP 112/69
[2018-08-03 16:00] VITALS: BP 157/73
[2018-08-03 19:45] VITALS: BP 159/80
[2018-08-03] MEDS: LISINOPRIL 10 MG TABLET PO SCH (20:27)
[2018-08-04 00:26] VITALS: BP 160/87
[2018-08-04] MEDS: ZOSYN 3.375GM+NS 50ML 50 ML IV SCH ×3 (00:46→17:28)
[2018-08-04] MEDS: HYDROMORPHONE 1 MG/1 ML AMP IVP PRN ×3 (00:47→17:29)
[2018-08-04 04:17] VITALS: BP 146/78
[2018-08-04] MEDS: SODIUM CHLORIDE 0.9% 1000ML 1,000 ML IV SCH ×2 (05:03→20:30)
[2018-08-04 07:00] VITALS: BP 159/78
[2018-08-04] MEDS: STIVARGA 40 MG PO SCH ×2 (09:00→20:31)
[2018-08-04 11:00] VITALS: BP 161/89
[2018-08-04] MEDS: KETOROLAC TROMETHAMINE 30MG/ML IV PRN ×2 (11:20→20:30)
[2018-08-04] MEDS: OXYCODONE HCL 30 MG TABLET PO PRN ×3 (11:20→20:30)
[2018-08-04] MEDS: LORAZEPAM 1 MG TABLET PO PRN (11:27)
[2018-08-04 16:00] VITALS: BP 146/81
[2018-08-04 19:00] VITALS: BP 142/77
[2018-08-04] MEDS: LISINOPRIL 10 MG TABLET PO SCH (20:31)
[2018-08-05] VITALS: BP 173/96
[2018-08-05] MEDS: ZOSYN 3.375GM+NS 50ML 50 ML IV SCH ×3 (00:21→17:30)
[2018-08-05] MEDS: HYDROMORPHONE 1 MG/1 ML AMP IVP PRN ×4 (00:27→22:09)
[2018-08-05 04:00] VITALS: BP 153/96
[2018-08-05] MEDS: SODIUM CHLORIDE 0.9% 1000ML 1,000 ML IV SCH ×2 (05:45→20:06)
[2018-08-05 07:00] VITALS: BP 178/86
[2018-08-05] MEDS: STIVARGA 40 MG PO SCH ×2 (09:00→20:08)
[2018-08-05] MEDS: FENTANYL 100 MCG/HR PATCH TD SCH (09:15)
[2018-08-05] MEDS: FENTANYL 25 MCG/HR PATCH TD SCH (09:16)
[2018-08-05 11:00] VITALS: BP 148/82
[2018-08-05] MEDS: KETOROLAC TROMETHAMINE 30MG/ML IV PRN ×2 (12:22→17:30)
[2018-08-05] MEDS: OXYCODONE HCL 30 MG TABLET PO PRN ×2 (12:23→17:37)
[2018-08-05 16:00] VITALS: BP 152/95
[2018-08-05 19:57] VITALS: BP 163/83
[2018-08-05] MEDS: LISINOPRIL 10 MG TABLET PO SCH (20:05)
[2018-08-06] VITALS: BP 160/82
[2018-08-06] MEDS: ZOSYN 3.375GM+NS 50ML 50 ML IV SCH ×2 (00:36→09:07)
[2018-08-06] MEDS: OXYCODONE HCL 30 MG TABLET PO PRN (02:09)
[2018-08-06] MEDS: KETOROLAC TROMETHAMINE 30MG/ML IV PRN (02:09)
[2018-08-06 04:00] VITALS: BP 157/87
[2018-08-06] MEDS: SODIUM CHLORIDE 0.9% 1000ML 1,000 ML IV SCH ×2 (06:10→13:02)
[2018-08-06 08:42] VITALS: BP 133/77
[2018-08-06] MEDS: STIVARGA 40 MG PO SCH (09:00)
[2018-08-06] MEDS: HYDROMORPHONE 1 MG/1 ML AMP IVP PRN ×3 (09:06→16:54)
[2018-08-06 12:09] VITALS: BP 151/83
[2018-08-06 16:26] VITALS: BP 179/89
[2018-08-06] MEDS ORDERED: HEPARIN SODIUM/PF 100UNIT/ML 5ML SYRINGE IV SCH (17:15)
== END 2018-08-06 18:50 | disposition home or self-care (01) | DRG 376 ==
LOC: EDH 03:05 → EDHIP 05:10 → 3DH 14:18
PROVIDERS: ADMIT Internal Medicine Hematology & Oncology; ATTEND Internal Medicine Hematology & Oncology
DX: C19 Malignant neoplasm of rectosigmoid junction (principal); K52.9 Noninfective gastroenteritis and colitis, unspecified; F32.9 Major depressive disorder, single episode, unspecified; I10 Essential (primary) hypertension; E04.1 Nontoxic single thyroid nodule; D64.9 Anemia, unspecified; Z85.048 Personal history of other malignant neoplasm of rectum, rectosigmoid junction, and anus; Z85.43 Personal history of malignant neoplasm of ovary; Z90.710 Acquired absence of both cervix and uterus; Z88.8 Allergy status to other drugs, medicaments and biological substances; Z88.5 Allergy status to narcotic agent; Z90.49 Acquired absence of other specified parts of digestive tract; Z28.21 Immunization not carried out because of patient refusal; Z79.899 Other long term (current) drug therapy
CPT/HCPCS: 36415; 74176; 80048; 80076; 82550; 83690; 84132; 84484; 85025; 85610; 85730; 93005; J1100; J1170; J1630; J1642; J1885; J2405; J2543; J2550; J7030; J7040

== ENCOUNTER 2018-08-20 01:13 | Emergency (ER) | payer BC, MEDICARE ==
[~2018-08-20 01:13] MED LIST changes: -FENT25PAT TD; -MAGIC240 MM
[2018-08-20] MEDS ORDERED: PROMETHAZINE HCL 25 MG/ML 1ML AMPULE IM ONE (01:51)
[2018-08-20] MEDS ORDERED: HYDROMORPHONE 1 MG/1 ML AMP ONE (01:52)
[2018-08-20] MEDS ORDERED: SODIUM CHLORIDE 0.9% 50 ML IV ONE (01:52)
[2018-08-20 01:55] LABS: BASOPHILS % (AUTO) 0.6 % (0.0-5.0); EOSINOPHILS % (AUTO) 2.3 % (0.0-8.0); HEMATOCRIT 42.1 % (36-48); LYMPHOCYTES % (AUTO) 20.7 % (21.0-51.0); MEAN CORPUSCULAR HEMOGLOBIN 28.2 pg (27.0-33.0); MEAN CORPUSCULAR HGB CONC 33.3 g/dL (32.0-36.0); MEAN CORPUSCULAR VOLUME 84.7 fL (79-99); MONOCYTES % (AUTO) 6.2 % (3.0-13.0); NEUTROPHILS % (AUTO) 70.2 % (40.0-77.0); NUCLEATED RED BLOOD CELLS 0.1 % (0.0-0.19); PLATELET COUNT (AUTO) 181 K/uL (130-400); RED BLOOD CELL COUNT(AUTO) 4.97 MIL/uL (4.00-5.50); RED CELL DISTRIBUTION WIDTH 17.1 % (11.0-15.5); WHITE BLOOD COUNT (AUTO) 4.7 K/uL (4.8-10.8)
[2018-08-20 02:05] LABS: CREATININE 0.6 mg/dL (0.5-1.5); POTASSIUM 3.1 mmol/L (3.5-5.1)
[2018-08-20 02:09] LABS: ALBUMIN 3.1 g/dL (3.5-5.0); BILIRUBIN,TOTAL 0.6 mg/dL (0.2-1.0); TOTAL PROTEIN, SERUM 6.6 g/dL (6.0-8.3)
[2018-08-20] MEDS ORDERED: HEPARIN SODIUM 5000UNIT/ML 1ML VIAL ONE (03:38)
== END 2018-08-20 03:42 | disposition home or self-care (01) ==
LOC: EDH 01:13
DX: R10.13 Epigastric pain (principal); I10 Essential (primary) hypertension; Z88.5 Allergy status to narcotic agent
CPT/HCPCS: 36415; 80053; 83690; 84484; 85025; 93005; 96374; 96375; 99285; J1170; J1644; J2550

== ENCOUNTER → 2018-11-21 | Outpatient (CLI) | payer BC, MEDICARE ==
[~2018-11-21] MED LIST changes: +DOCU-116 PO; -FENT100PAT TD; +IBUP-2077 PO; +OXYC36CA PO; -REGO40TA PO; +TRIF1TAB PO
== END | disposition home or self-care (01) ==
LOC: RAH 14:10
PROVIDERS: ATTEND Internal Medicine Hematology & Oncology
DX: I82.401 Acute embolism and thrombosis of unspecified deep veins of right lower extremity (principal); M79.89 Other specified soft tissue disorders; G89.3 Neoplasm related pain (acute) (chronic); C20 Malignant neoplasm of rectum; C56.2 Malignant neoplasm of left ovary; D50.9 Iron deficiency anemia, unspecified; R19.09 Other intra-abdominal and pelvic swelling, mass and lump; R22.41 Localized swelling, mass and lump, right lower limb
CPT/HCPCS: 93971

== ENCOUNTER 2018-11-30 06:58 | Inpatient (IN) | payer BC, MEDICARE | END 2018-12-05 19:55 | disposition home or self-care (01) | LOC: EDH 06:58 → EDHIP 10:04 → 3CH 14:10 | DX: C78.5 Secondary malignant neoplasm of large intestine and rectum (principal); C79.60 Secondary malignant neoplasm of unspecified ovary; F32.9 Major depressive disorder, single episode, unspecified; E04.1 Nontoxic single thyroid nodule; Z85.43 Personal history of malignant neoplasm of ovary; G89.3 Neoplasm related pain (acute) (chronic) ==

== ENCOUNTER 2019-01-26 20:22 | Emergency (ER) | payer MEDICARE, BC ==
[2019-01-26] MEDS ORDERED: ONDANSETRON HCL 4 MG/2 ML VIAL ONE (22:11)
[2019-01-26] MEDS ORDERED: HYDROMORPHONE 1 MG/1 ML AMP ONE ×2 (22:12→22:57)
[2019-01-26 22:13] LABS: BASOPHILS % (AUTO) 0.4 % (0.0-5.0); EOSINOPHILS % (AUTO) 0.1 % (0.0-8.0); HEMATOCRIT 29.7 % (36-48); LYMPHOCYTES % (AUTO) 10.3 % (21.0-51.0); MEAN CORPUSCULAR HEMOGLOBIN 25.4 pg (27.0-33.0); MEAN CORPUSCULAR HGB CONC 32.6 g/dL (32.0-36.0); MEAN CORPUSCULAR VOLUME 77.9 fL (79-99); MONOCYTES % (AUTO) 6.1 % (3.0-13.0); NEUTROPHILS % (AUTO) 83.1 % (40.0-77.0); PLATELET COUNT (AUTO) 502 K/uL (130-400); RED BLOOD CELL COUNT(AUTO) 3.81 MIL/uL (4.00-5.50)
[2019-01-26 22:24] LABS: CREATININE 0.9 mg/dL (0.5-1.5); POTASSIUM 3.4 mmol/L (3.5-5.1)
[2019-01-26 22:29] LABS: ALBUMIN 2.8 g/dL (3.5-5.0); BILIRUBIN,TOTAL 0.2 mg/dL (0.2-1.0); TOTAL PROTEIN, SERUM 7.1 g/dL (6.0-8.3)
[2019-01-26] MEDS ORDERED: LORAZEPAM 2 MG/ML 1 ML VIAL ONE (23:47)
== END 2019-01-27 00:30 | disposition home or self-care (01) ==
LOC: EDH 20:22
DX: G89.3 Neoplasm related pain (acute) (chronic) (principal); C19 Malignant neoplasm of rectosigmoid junction; C79.60 Secondary malignant neoplasm of unspecified ovary; C79.82 Secondary malignant neoplasm of genital organs; I10 Essential (primary) hypertension; Z98.890 Other specified postprocedural states; Z88.5 Allergy status to narcotic agent; Z88.8 Allergy status to other drugs, medicaments and biological substances
CPT/HCPCS: 36415; 80053; 85025; 96374; 96375; 96376; 99283; J1170 ×2; J2060; J2405

== ENCOUNTER 2019-04-03 15:20 | Inpatient (IN) | payer BC, MEDICARE ==
[~2019-04-03] VITALS: Ht 162.6 cm; Wt 53.8 kg
[2019-04-03] MEDS ORDERED: ONDANSETRON HCL 4 MG/2 ML VIAL ONE (15:55)
[2019-04-03] MEDS ORDERED: HYDROMORPHONE 1 MG/1 ML AMP ONE ×2 (15:56→16:52)
[2019-04-03] MEDS ORDERED: SODIUM CHLORIDE 0.9% 1000ML 1,000 ML IV ONE (15:58)
[2019-04-03 16:19] LABS: BASOPHILS % (AUTO) 0.2 % (0.0-5.0); EOSINOPHILS % (AUTO) 0.2 % (0.0-8.0); HEMATOCRIT 30.6 % (36-48); LYMPHOCYTES % (AUTO) 7.7 % (21.0-51.0); MEAN CORPUSCULAR HEMOGLOBIN 26.8 pg (27.0-33.0); MEAN CORPUSCULAR HGB CONC 32.8 g/dL (32.0-36.0); MEAN CORPUSCULAR VOLUME 81.7 fL (79-99); MONOCYTES % (AUTO) 7.1 % (3.0-13.0); NEUTROPHILS % (AUTO) 84.8 % (40.0-77.0); PLATELET COUNT (AUTO) 374 K/uL (130-400); RED BLOOD CELL COUNT(AUTO) 3.75 MIL/uL (4.00-5.50); RED CELL DISTRIBUTION WIDTH 24.4 % (11.0-15.5); WHITE BLOOD COUNT (AUTO) 6.6 K/uL (4.8-10.8)
[2019-04-03 16:28] LABS: CREATININE 0.9 mg/dL (0.5-1.5); POTASSIUM 3.6 mmol/L (3.5-5.1)
[2019-04-03 16:33] LABS: ALBUMIN 2.8 g/dL (3.5-5.0); BILIRUBIN,TOTAL 0.2 mg/dL (0.2-1.0); TOTAL PROTEIN, SERUM 6.9 g/dL (6.0-8.3)
[2019-04-03] MEDS ORDERED: SODIUM CHLORIDE 0.9% 500ML 500 ML IV ONE (16:52)
[2019-04-03] MEDS ORDERED: ONDANSETRON HCL 4 MG/2 ML VIAL IVP PRN (18:00)
[2019-04-03 18:25] VITALS: BP 161/92
[2019-04-03] MEDS ORDERED: IPRATROPIUM/ALBUTEROL SULFATE 3 ML SOLUTION IH ONE (18:56)
[2019-04-03] MEDS: SODIUM CHLORIDE 0.9% 1000ML 1,000 ML IV SCH (19:12)
[2019-04-03] MEDS: HYDROMORPHONE HCL 2 MG/ML VIAL IVP PRN ×2 (19:15→22:40)
[2019-04-03] MEDS ORDERED: IBUP-2077 PO (19:58)
[2019-04-03] MEDS ORDERED: METH5TAB2 PO (19:58)
[2019-04-03] MEDS ORDERED: OXYC36CA PO (19:58)
[2019-04-03] MEDS ORDERED: ONDA8TAB12 PO (19:58)
[2019-04-04] VITALS: BP 151/83
[2019-04-04] MEDS: HYDROMORPHONE HCL 2 MG/ML VIAL IVP PRN ×7 (01:32→23:43)
[2019-04-04 04:00] VITALS: BP 161/91
[2019-04-04] MEDS: SODIUM CHLORIDE 0.9% 1000ML 1,000 ML IV SCH ×2 (04:45→16:00)
[2019-04-04 07:00] VITALS: BP 146/83
[2019-04-04] MEDS ORDERED: OXYCODONE HCL 30 MG TABLET PO PRN (07:45)
[2019-04-04] MEDS ORDERED: IBUPROFEN 800 MG PO PRN (07:45)
[2019-04-04] MEDS ORDERED: TRIFLURIDINE PO SCH (07:45)
[2019-04-04] MEDS ORDERED: TIPIRACIL HCL PO SCH (07:45)
[2019-04-04] MEDS ORDERED: ONDANSETRON ODT 4 MG TAB PO PRN (07:45)
[2019-04-04] MEDS ORDERED: IOHEXOL-350 75 ML VIAL IV ONE ×2 (08:42→11:12)
[2019-04-04] MEDS ORDERED: IBUPROFEN 800 MG TAB PO PRN (10:09)
[2019-04-04] MEDS: LISINOPRIL 10 MG TABLET PO SCH (10:24)
[2019-04-04] MEDS ORDERED: COMPOUND NARC IV MISC 1 EACH IVSOLN MISC PRN (10:30)
[2019-04-04] MEDS ORDERED: COMPOUND PO MISCELLANEOUS 1 EACH MISC MISC PRN (10:30)
[2019-04-04 11:00] VITALS: BP 137/83
[2019-04-04] MEDS: METHADONE HCL 5 MG TABLET PO SCH ×2 (11:51→21:13)
[2019-04-04] MEDS: OXYCODONE MYRISTATE PO SCH ×2 (12:01→20:55)
--- NOTE | 2019-04-04 13:00 | NUR ---
INITIAL Met w patient; known to this case kate kate of cancer, chronic pain, lives w sibling, ex spouse and sibling provide transport, updated face sheet to incluce sibling; no dme, no provider; her for better pain contorl, katep home . Addendum: 04/06/19 at 0822 by FILEMON GRIGGS RN CM Amended: Links added.
[2019-04-04] MEDS: LORAZEPAM 1 MG TABLET PO PRN (19:02)
[2019-04-04 19:34] VITALS: BP 130/79
[2019-04-04] MEDS: TIPIRACIL HCL PO SCH (20:58)
[2019-04-04] MEDS: TRIFLURIDINE PO SCH (20:58)
[2019-04-04 23:58] VITALS: BP 146/83
[2019-04-05] MEDS: HYDROMORPHONE HCL 2 MG/ML VIAL IVP PRN ×7 (03:32→21:20)
[2019-04-05 04:00] VITALS: BP 143/80
[2019-04-05] MEDS: LORAZEPAM 1 MG TABLET PO PRN ×3 (04:02→21:16)
[2019-04-05] MEDS: OXYCODONE HCL 30 MG TABLET PO PRN (05:07)
[2019-04-05 07:30] VITALS: BP 132/75
[2019-04-05] MEDS: OXYCODONE MYRISTATE PO SCH ×3 (08:40→19:55)
[2019-04-05] MEDS: TRIFLURIDINE PO SCH ×2 (08:41→19:53)
[2019-04-05] MEDS: TIPIRACIL HCL PO SCH ×2 (08:41→19:53)
[2019-04-05] MEDS: LISINOPRIL 10 MG TABLET PO SCH (08:42)
[2019-04-05] MEDS: METHADONE HCL 5 MG TABLET PO SCH (08:43)
[2019-04-05] MEDS: SODIUM CHLORIDE 0.9% 1000ML 1,000 ML IV SCH ×3 (10:10→19:55)
[2019-04-05 11:00] VITALS: BP 142/79
--- NOTE | 2019-04-05 13:53 | NUR ---
INFO DR. MOMIN MADE ROUNDS THIS MORNING, HE REQUESTED CONSULT FOR DR. Derek LÓPEZ FOR PAIN MANAGEMENT. DR. LÓPEZ HAD WORKED WITH PATIENT PREVIOUSLY AND HAD SOME SUCCESS WITH PAIN MANAGEMENT. DR. MOMIN FURTHER STATED HE WOULD ALSO CALL DR. LÓPEZ AND PROVIDE AN UPDATE ON THE PATIENT'S CONDITION.
[2019-04-05 16:00] VITALS: BP 144/83
[2019-04-05 19:30] VITALS: BP 153/85
[2019-04-05] MEDS: METHADONE HCL 10 MG TABLET PO SCH (19:54)
[2019-04-06 00:10] VITALS: BP 151/78
[2019-04-06] MEDS: HYDROMORPHONE HCL 2 MG/ML VIAL IVP PRN ×7 (00:23→20:30)
[2019-04-06] MEDS: LORAZEPAM 1 MG TABLET PO PRN ×2 (03:25→20:29)
[2019-04-06 04:40] VITALS: BP 160/82
[2019-04-06] MEDS: SODIUM CHLORIDE 0.9% 1000ML 1,000 ML IV SCH ×2 (05:16→15:01)
[2019-04-06] MEDS: OXYCODONE HCL 30 MG TABLET PO PRN ×3 (06:25→15:21)
--- NOTE | 2019-04-06 07:30 | NUR ---
ROUNDS DR. MOMIN VISITED PATIENT. POC DISCUSSED. DR. MOMIN STATED HE WILL CALL DR. Derek LÓPEZ PERSONALLY TO DISCUSS PLAN OF CARE AND PLAN TO TRANSITION TO HOSPICE.
[2019-04-06 08:01] VITALS: BP 163/87
[2019-04-06] MEDS: LISINOPRIL 10 MG TABLET PO SCH (08:04)
[2019-04-06] MEDS: METHADONE HCL 10 MG TABLET PO SCH ×2 (08:04→20:30)
[2019-04-06] MEDS: TRIFLURIDINE PO SCH ×2 (08:08→20:37)
[2019-04-06] MEDS: TIPIRACIL HCL PO SCH ×2 (08:08→20:37)
[2019-04-06] MEDS: OXYCODONE MYRISTATE PO SCH ×2 (08:08→20:44)
[2019-04-06 11:25] VITALS: BP 146/83
[2019-04-06 16:28] VITALS: BP 144/78
[2019-04-06 19:05] VITALS: BP 127/77
--- NOTE | 2019-04-06 20:30 | NUR ---
ASSESS SHIFT ASSESSMENT DONE, PLEASE REFER TO CHART. PT COMPLAINTS OF PAINS ON HER BACK AND ABDOMEN. DUE MEDS ADMINISTERED, DILAUDID IV GIVEN FOR PAINS. KEPT RESTED AND COMFORTABLE IN BED. CALL LIGHT WITHIN REACH. WILL RE-ASSESS PT. Addendum: 04/07/19 at 0407 by ARMANDO DAVIES RN RN Amended: Links added.
[2019-04-07 00:05] VITALS: BP 150/82
[2019-04-07] MEDS ORDERED: HYDROMORPHONE 1 MG/1 ML AMP ONE ×3 (00:52→06:35)
--- NOTE | 2019-04-07 00:55 | NUR ---
PAIN PT CALLS FOR PAIN MEDICATION AND REQUESTED FOR DILAUDID SHOT. MEDICATED PT. RE-ITERATED FALL PRECAUTIONS. WILL RE-ASSESS PT.
[2019-04-07] MEDS: SODIUM CHLORIDE 0.9% 1000ML 1,000 ML IV SCH ×3 (00:59→21:20)
--- NOTE | 2019-04-07 03:33 | NUR ---
PAIN PT CALLS AND CLAIMS OF PAINS ON HER ABDOMEN AND BACK AREAS. PT REQUESTED FOR DILAUDID SHOT. MEDICATED PT. KEPT COMFORTABLE IN BED. CALL LIGHT WITHIN REACH. WILL RE-ASSESS PT.
[2019-04-07 04:05] VITALS: BP 147/90
[2019-04-07] MEDS: LORAZEPAM 1 MG TABLET PO PRN ×3 (05:30→20:12)
--- NOTE | 2019-04-07 05:30 | NUR ---
MEDS PT CALLS FOR PAIN MEDICATIONS AND ANTI-ANXIETY MEDS. PT CLAIMS OF ABDOMINAL PAINS AND BACK PAINS. OXYCODONE AND ATIVAN PO GIVEN. KEPT COMFORTABLE IN BED. WILL RE-ASSESS PT.
--- NOTE | 2019-04-07 06:30 | NUR ---
RE-ASSESS TOE FORMER STITCHDOWNS WENT IN TO RE-ASSESS PT. PT STILL CLAIMS OF ABDOMINAL PAINS AND BACK PAINS AND REQUESTED DILAUDID DOSE. MEDICATED PT. ENDORSING TO AM SHIFT FOR MORE CARE AND MANAGEMENT. PENDING DR LÓPEZ CONSULT FOR TRANSITION TO HOSPICE.
[2019-04-07 07:58] VITALS: BP 159/84
[2019-04-07] MEDS: TRIFLURIDINE PO SCH ×2 (09:00→20:13)
[2019-04-07] MEDS: TIPIRACIL HCL PO SCH ×2 (09:00→20:13)
[2019-04-07] MEDS: OXYCODONE MYRISTATE PO SCH ×2 (09:00→20:14)
[2019-04-07] MEDS: LISINOPRIL 10 MG TABLET PO SCH (09:23)
[2019-04-07] MEDS: METHADONE HCL 10 MG TABLET PO SCH ×3 (09:23→20:13)
[2019-04-07] MEDS: HYDROMORPHONE HCL 2 MG/ML VIAL IVP PRN ×4 (09:26→21:11)
[2019-04-07 12:06] VITALS: BP 144/76
--- NOTE | 2019-04-07 14:32 | NUR ---
DR DORSEY- DCP HOME WITH [facility] Dr dorsey contacted by Dr Hilliard reference pt and referral to hospice. Sw present when Dr Dorsey met with pt and he informed her that cancer was getting worse despite chemo treatments. Dr Dorsey explained to pt that it was time to focus on comfort. Pt was in agreement with starting hospice and DNR. Dr Dorsey to make medication changes and he thinks pt will need to be here about 3 days before she can dc with hospice. Dr Dorsey said to pt that referral to hospice was not because he felt she did not have long to live, it was so he can start treating her pain the way it needs to be treated . Pt asked that Dr Dorsey talk to and inform him of this. Pt requesting [facility] so Dr Dorsey can follow her. Dr Dorsey called pt's and discussed above. also in agreement with plan. SW made referral to [facility]. Garrick spoke to and they will meet either tonight or in am to start paperwork and get DME to home
[2019-04-07] MEDS: POLYETHYLENE GLYCOL 3350 17 GM POWD.PACK PO SCH (15:06)
[2019-04-07 16:46] VITALS: BP 154/88
[2019-04-07 20:00] VITALS: BP 159/77
--- NOTE | 2019-04-07 20:10 | NUR ---
ASSESS SHIFT ASSESSMENT DONE, PLEASE REFER TO CHART. DUE MEDS ADMINISTERED, TOLERATED WELL. KEPT RESTED AND COMFORTABLE IN BED. DNR FORM FILLED AND COMPLETED, SIGNED BY PT AND PT'S SPOUSE. PLACED IN CHART. WILL MONITOR PT. CALL LIGHT WITHIN REACH. Addendum: 04/08/19 at 0455 by ARMANDO DAVIES RN RN Amended: Links added.
--- NOTE | 2019-04-07 20:30 | NUR ---
HOSPICE HOSPICE NURSE IN TO TALK WITH PT AND SPOUSE. OOH DNR SIGNED BY PT. FORM PLACED IN CHART.
--- NOTE | 2019-04-07 21:10 | NUR ---
COMFORT PT IS VERY EMOTIONAL AT THIS TIME, CRYING. CALLS FOR PAIN SHOT. TRIED TO CALM PT. SPOUSE TALKING TO PT AT THIS TIME. MEDICATED WITH DILAUDID IV. LEFT PT AFTER SHE CALMED DOWN. WILL MONITOR CLOSELY. RE-ITERATED FALL PRECAUTIONS.
[2019-04-08] VITALS: BP 161/95
[2019-04-08] MEDS: HYDROMORPHONE HCL 2 MG/ML VIAL IVP PRN ×9 (00:20→23:23)
--- NOTE | 2019-04-08 00:20 | NUR ---
PAIN PT CALLED VERBALIZES PAINS TO THE ABDOMEN AND BACK. MEDICATED WITH DILAUDID IV. KEPT COMFORTABLE AND RESTED. WILL RE-ASSESS PT. CALL LIGHT WITHIN REACH.
--- NOTE | 2019-04-08 02:28 | NUR ---
PAIN PT AWAKENED AND COMPLAINTS OF PAINS, REQUESTING IV PAIN MEDS. MEDICATED WITH DILAUDID IV. ENCOURAGED TO RELAX AND TAKE DEEP BREATHS. WILL RE-ASSESS PT.
[2019-04-08] MEDS: SODIUM CHLORIDE 0.9% 1000ML 1,000 ML IV SCH ×3 (02:31→18:06)
[2019-04-08 04:00] VITALS: BP 147/79
--- NOTE | 2019-04-08 04:38 | NUR ---
PAINS PCP IN TO TAKE V/S, STABLE. PT VERBALIZES NEED FOR PAIN SHOT. DILAUDID DOSE ADMINISTERED. KEPT COMFORTABLE IN BED. WILL RE-ASSESS PT.
[2019-04-08] MEDS ORDERED: HYDROMORPHONE 1 MG/1 ML AMP ONE (06:39)
--- NOTE | 2019-04-08 06:46 | NUR ---
PAINS PT CALLS FOR IV DILAUDID FOR ABDOMINAL PAINS. MEDICATED PT. ENDORSING TO AMS SHIFT FOR MORE CARE AND MANAGEMENT.
[2019-04-08 08:00] VITALS: BP 157/81
[2019-04-08] MEDS: LISINOPRIL 10 MG TABLET PO SCH (08:42)
[2019-04-08] MEDS: LORAZEPAM 1 MG TABLET PO PRN ×2 (08:42→17:54)
[2019-04-08] MEDS: METHADONE HCL 10 MG TABLET PO SCH ×3 (08:45→20:43)
[2019-04-08] MEDS: OXYCODONE MYRISTATE PO SCH ×2 (08:52→21:00)
--- NOTE | 2019-04-08 09:48 | NUR ---
[facility] ACC[facility] - POSSIBLE GIP SW spoke to pt's night nurse for report. Sw updated Dr Ghosh. Dr Ghosh states it will take 3 days for methadone to kick in. He will consider GIP if pain is not under control by then. Nurse Chicho and pt updated on this. Anai recd call from Garrick at [facility]. Pt and completed paperwork and OOHDNR. Pt has been accepted and DME to be delivered sometime today or tomorrow.
[2019-04-08 12:00] VITALS: BP 154/79
[2019-04-08] MEDS: POLYETHYLENE GLYCOL 3350 17 GM POWD.PACK PO SCH (15:03)
[2019-04-08 16:00] VITALS: BP 141/67
--- NOTE | 2019-04-08 16:43 | NUR ---
dcp: POSSIBLE DC HOME WITH [facility] TOMORROW Per Dr Ghosh, he rounded on pt today and she maybe able to dc home tomorrow. Will update Dr Ghosh in am on pt.
[2019-04-08 19:49] VITALS: BP 156/86
[2019-04-08] MEDS ORDERED: ONDANSETRON HCL 4 MG/2 ML VIAL ONE (20:29)
[2019-04-09] VITALS: BP 139/79
[2019-04-09] MEDS: HYDROMORPHONE HCL 2 MG/ML VIAL IVP PRN ×8 (01:37→17:08)
[2019-04-09 04:00] VITALS: BP 147/88
[2019-04-09] MEDS: SODIUM CHLORIDE 0.9% 1000ML 1,000 ML IV SCH (04:00)
--- NOTE | 2019-04-09 05:41 | NUR ---
PATIENT UPDATE PT SLEPT FAIRLY OVERNIGHT IN BETWEEN PAIN MEDS. WAS MEDICATED FOR LOWER ABDOMINAL AND LOWER BACK PAIN ALMOST Q 2 HRS PRN WITH DILAUDID 3 MG IV PUSH THROUGH THE PORTACATH ACCESS. WAS DISCONNECTED FROM THE MAIN IVF PER PT'S REQUEST. PENDING DISCHARGE HOME TODAY UNDER [facility]. MEDICATED ONCE FOR NAUSEA WITH ZOFRAN 4 MG IV WHICH AFFORDED RELIEF. PT UP AD RICKY, DOES HER OWN COLOSTOMY CARE.
[2019-04-09] MEDS: LORAZEPAM 1 MG TABLET PO PRN (07:42)
[2019-04-09 08:00] VITALS: BP 143/95
[2019-04-09] MEDS: LISINOPRIL 10 MG TABLET PO SCH (08:13)
[2019-04-09] MEDS: METHADONE HCL 10 MG TABLET PO SCH ×2 (08:13→13:49)
[2019-04-09] MEDS: OXYCODONE MYRISTATE PO SCH (09:00)
--- NOTE | 2019-04-09 09:53 | NUR ---
CM Note: [facility] approval and acceptance As per Zeenat MARTIN, pt has approval and acceptance for [facility] equipments had been delivered, Dr Ghosh will follow pt through [facility] for pain mgt. Pt safe to dc via private car. Primary nurse aware. CM to cont to follow up.
--- NOTE | 2019-04-09 10:05 | NUR ---
DCP Sw present when Dr Ghosh rounded with pt. Plan is for pt to dc home today. Dr Ghosh also spoke with pt's daughter Cara who is a nurse and will be primary caregiver and discussed plan of care. Sw informed nurse Peggy araujo [place] of this. Pt's to transport home later this evening
[2019-04-09 12:00] VITALS: BP 132/84
[2019-04-09] MEDS: POLYETHYLENE GLYCOL 3350 17 GM POWD.PACK PO SCH (13:49)
[2019-04-09 16:00] VITALS: BP 125/81
[2019-04-09] MEDS ORDERED: HEPARIN SODIUM/PF 100UNIT/ML 5ML SYRINGE IV SCH (17:00)
--- NOTE | 2019-04-09 17:46 | NUR ---
Right chest Port a cath deaccessed. Flushed with 10cc NS then flushed with Heparin 300units. Needle withdrawn from right chest portacath. Pt tolerated well. No s/s of bleeding. Band aid placed.l
--- NOTE | 2019-04-09 18:00 | NUR ---
Patient discharged in stable condition. Patient going home with [facility] and given number to Zenia the Hospice Nurse. Patient given instruction on Hospice care. No questions or concerns. Patient in no distress upon Distress
[2019-04-10] MEDS ORDERED: TRIFLURIDINE PO SCH (09:00)
[2019-04-10] MEDS ORDERED: TIPIRACIL HCL PO SCH (09:00)
[2019-04-17] MEDS ORDERED: TIPIRACIL HCL PO SCH (09:00)
[2019-04-17] MEDS ORDERED: TRIFLURIDINE PO SCH (09:00)
== END 2019-04-09 19:00 | disposition hospice, home (50) | DRG 948 ==
LOC: EDH 15:20 → EDHIP 17:25 → 3CH 18:32
PROVIDERS: ADMIT Internal Medicine Hematology & Oncology; ATTEND Internal Medicine Hematology & Oncology
DX: G89.3 Neoplasm related pain (acute) (chronic) (principal); C20 Malignant neoplasm of rectum; C78.00 Secondary malignant neoplasm of unspecified lung; C78.6 Secondary malignant neoplasm of retroperitoneum and peritoneum; N13.30 Unspecified hydronephrosis; E44.0 Moderate protein-calorie malnutrition; F32.9 Major depressive disorder, single episode, unspecified; Z66 Do not resuscitate; K59.00 Constipation, unspecified; N19 Unspecified kidney failure; Z51.5 Encounter for palliative care; Z85.048 Personal history of other malignant neoplasm of rectum, rectosigmoid junction, and anus; Z85.43 Personal history of malignant neoplasm of ovary; Z87.440 Personal history of urinary (tract) infections; Z90.710 Acquired absence of both cervix and uterus; Z93.3 Colostomy status; Z90.79 Acquired absence of other genital organ(s); Z90.722 Acquired absence of ovaries, bilateral
CPT/HCPCS: 36415; 71045; 71260; 74177; 80053; 85025; 94640; G0378; J1170; J1642; J2405; J7030; J7040; Q9967